=== PATIENT | male | born 1960 | race Caucasian/White ===

== ENCOUNTER 2019-06-07 11:15 | Outpatient (CLI) | payer MEDICARE ==
[2019-06-07 13:40] LABS: Hemoglobin 14.3 g/dL (14.0-18.0); Mean Corpuscular HGB CONC 33.8 g/dL (32.0-36.0); Mean Corpuscular Hemoglobin 30.4 pg (27.0-31.0); Mean Corpuscular Volume 90.1 fL (78.0-98.0); Mean Platelet Volume 8.3 fL (7.4-10.4); Platelet Count 232 thou/uL (130-400); RBC Distribution Width 11.1 % (11.5-14.5); Red Blood Cell (RBC) Count 4.71 mill/uL (4.70-6.10); White Blood Cell (WBC) Count 7.6 thou/uL (4.8-10.8)
[2019-06-07 13:58] LABS: PTT 27.2 SEC (22.9-36.1); Prothrombin Time 12.9 SEC (12.0-14.7)
[2019-06-07 14:05] LABS: Anion Gap 15 mmol/L (10-20); BUN (Urea Nitrogen) 15 mg/dL (8.4-25.7); Calc. Creatinine Clearance 0 mL/min (70-130); Calcium 10.1 mg/dL (7.8-10.44); Carbon Dioxide 28 mmol/L (22-29); Chloride 102 mmol/L (98-107); Estimated GFR-MDRD Greater than 90; Glucose 95 mg/dL (70-105); Potassium 3.5 mmol/L (3.5-5.1); Sodium 141 mmol/L (136-145)
--- NOTE | 2019-06-12 00:01 | EKG ---
Test Reason : Blood Pressure : / mmHG Vent. Rate : 075 BPM Atrial Rate : 075 BPM P-R Int : 140 ms QRS Dur : 094 ms QT Int : 388 ms P-R-T Axes : 075 069 062 degrees QTc Int : 433 ms Normal sinus rhythm Normal ECG No previous ECGs available Confirmed by Erik GILLETTE ([id number]) on 06/12/2019 12:01:28 AM Referred By: GLORIA Confirmed By:Erik GILLETTE
== END 2019-06-07 11:16 | disposition home or self-care (01) ==
LOC: LABBT 11:15
PROVIDERS: ATTEND Urology
DX: Z01.818 Encounter for other preprocedural examination (principal); N40.1 Benign prostatic hyperplasia with lower urinary tract symptoms; R35.0 Frequency of micturition; R97.20 Elevated prostate specific antigen [PSA]; R33.8 Other retention of urine
CPT/HCPCS: 80048; 85027; 85610; 85730; 87077; 87086; 87186; 93005; 93010

== ENCOUNTER 2019-06-23 00:20 | Emergency (ER) | payer MEDICARE ==
[2019-06-23 02:05] LABS: ALT (SGPT) 15 U/L (8-55); AST (SGOT) 11 U/L (5-34); Albumin 4.6 g/dL (3.5-5.0); Alkaline Phosphatase 73 U/L (40-110); Anion Gap 15 mmol/L (10-20); BUN (Urea Nitrogen) 13 mg/dL (8.4-25.7); Bilirubin, Total 0.4 mg/dL (0.2-1.2); Calc. Creatinine Clearance 0 mL/min (70-130); Calcium 10.1 mg/dL (7.8-10.44); Carbon Dioxide 26 mmol/L (22-29); Chloride 100 mmol/L (98-107); Estimated GFR-MDRD Greater than 90; Globulin 3.4 g/dL (2.4-3.5); Glucose 130 mg/dL (70-105); Potassium 3.3 mmol/L (3.5-5.1); Sodium 138 mmol/L (136-145)
[2019-06-23 02:29] LABS: #Basophils 0.1 thou/uL (0.0-0.2); #Eosinphils 0.1 thou/uL (0.0-0.7); #Lymphocytes 1.4 thou/uL (1.20-3.40); #Neutrophils 9.4 thou/uL (1.40-6.50); %Basophils 0.4 % (0.0-1.0); %Eosinophils 0.6 % (0.0-10.0); %Lymphocytes 11.6 % (21.0-51.0); %Monocytes 8.4 % (0.0-10.0); %Neutrophils 79.1 % (42.0-75.0); Hemoglobin 14.7 g/dL (14.0-18.0); Mean Corpuscular HGB CONC 34.3 g/dL (32.0-36.0); Mean Corpuscular Hemoglobin 30.8 pg (27.0-31.0); Mean Corpuscular Volume 89.6 fL (78.0-98.0); Mean Platelet Volume 8.5 fL (7.4-10.4); Platelet Count 248 thou/uL (130-400); RBC Distribution Width 11.3 % (11.5-14.5); Red Blood Cell (RBC) Count 4.79 mill/uL (4.70-6.10); White Blood Cell (WBC) Count 11.8 thou/uL (4.8-10.8)
[2019-06-23 02:43] LABS: Bacteria/HPF 2+ HPF (None Seen); Bilirubin Negative (Negative); Blood, Urine 2+ (Negative); Clarity Extra Turbid (Clear); Glucose, Urine (Dipstick) Normal (Negative); Leukocyte 500 Leu/uL (Negative); Nitrite Negative (Negative); Protein, Urine (Dipstick) 300 mg/dL (Neg-Trace); RBC/HPF Greater than 50 HPF (0-3); Squamous Epithelial None Seen HPF (0-3); WBC/HPF Greater than 50 HPF (0-3)
[2019-06-23] MEDS ORDERED: cefTRIAXone\\ROCEPHIN 2 GM VIAL ONE (03:18)
--- NOTE | 2019-06-23 09:21 | CT ---
PRELIMINARY REPORT/[facility]/EMERGENCY AFTER HOURS PROCEDURE EXAM: CT Abdomen and Pelvis with Intravenous Contrast CLINICAL HISTORY: M59 presents to the ED for urinary complaint. Pt reports he hasn't been feeling goo d for the past 5 days, and has been experiencing myalgias, cough, abd pain, 100.7 temp fever, chills, and sweats. Pt states he has been experiencing urinary retention since yesterday. Pt also states he has had decrease in BM, and has had little BM yesterday after not having any for the past 4 days. Pt has hx of enlarged prostate and was suppose to have sx last week but had to have it rescheduled. Pt h as a neri catheter in place and states he had it changed a couple of weeks ago. TECHNIQUE: Axial computed tomography images of the abdomen and pelvis with intravenous contrast. Cor onal and sagittal reformatted images are provided. CONTRAST: With; ISOVUE 370,100mL intravenous. COMPARISON: None provided. FINDINGS: LUNG BASES: Coronary atherosclerosis. The heart is normal size. The lung bases are clear. LIVER: Unremarkable. GALLBLADDER AND BILE DUCTS: Unremarkable. No calcified stone. No ductal dilation. PANCREAS: Unremarkable. SPLEEN: Unremarkable. ADRENAL GLANDS: Unremarkable. KIDNEYS, URETERS, AND BLADDER: 3 mm stone at the lower pole of the left kidney. No hydronephrosis or additional stones. Enlarged prostate. Neri catheter within the urinary bladder. Diffuse bladder wal l thickening with fat stranding adjacent to the bladder. STOMACH AND BOWEL: No obstruction. No wall thickening. No CT evidence of colitis or acute diverticuli tis. APPENDIX: No CT evidence for appendicitis. PERITONEUM: No free fluid. No free air. No abscess. LYMPH NODES: Lymph nodes adjacent to the urinary bladder measure up to 1.2 cm. Right iliac chain nod e measures 9 mm. REPRODUCTIVE: Unremarkable as visualized. VASCULATURE: No aortic aneurysm. BONES: No acute fractures or worrisome osseous lesions. Multilevel degenerative changes of the spine, worse at L5-S1. ABDOMINAL WALL AND SOFT TISSUES: Unremarkable. IMPRESSION: 1. Enlarged prostate with Neri catheter in the urinary bladder. Diffuse bladder wall thickening an d stranding is concerning for possible infectious cystitis. Correlate with urinalysis for infection. 2. Left nephrolithiasis. 3. Enlarged pelvic lymph nodes. These are felt to be reactive from acute bladder and/or prostate pr ocess, however imaging follow-up is recommended to exclude the possibility of malignancy. ELECTRONICALLY SIGNED BY: Augustine Banks M.D. Jun 23, 2019 2:48:23 AM HEAD FILTER TANK TENDER HELPER FINAL REPORT CT ABDOMEN AND PELVIS WITH IV CONTRAST: I agree with the preliminary report given by Dr. Augustine Banks of [facility]. POS: [facility]
[2019-06-23] MEDS ORDERED: Iopamidol-370 76% 500 ML 1 ML ONE (11:54)
== END 2019-06-23 03:47 | disposition home or self-care (01) ==
LOC: ERS 00:20
DX: N39.0 Urinary tract infection, site not specified (principal); I10 Essential (primary) hypertension; Z79.899 Other long term (current) drug therapy
CPT/HCPCS: 36415; 51702; 74177; 80053; 81003; 81015; 83605; 85025; 87040; 87077; 87086; 87186; 96374; J0696; Q9967

== ENCOUNTER 2019-06-29 09:07 | Observation (INO) | payer MEDICARE ==
[2019-06-07 11:29] VITALS: BMI 22.4
[2019-06-29] MEDS ORDERED: Levofloxacin 500 mg/D5W 100 ml Premix Bag ONE (10:06)
[2019-06-29] MEDS ORDERED: Rocuronium Bromide 10 MG/ML (10ML VIAL) ONE (10:40)
[2019-06-29] MEDS ORDERED: Esmolol 100 MG/10 ML VIAL ONE (10:40)
[2019-06-29] MEDS ORDERED: Labetalol HCl 100 MG/20 ML VIAL ONE (10:40)
[2019-06-29] MEDS ORDERED: Lidocaine 1% PF 5 ML VIAL ONE (10:40)
[2019-06-29] MEDS ORDERED: Ondansetron PF 4 MG/2 ML Vial ONE (10:40)
[2019-06-29] MEDS ORDERED: PROPOFOL 200 MG/20 ML VIAL ONE (10:40)
[2019-06-29] MEDS ORDERED: Glycopyrrolate 0.2 MG/ML 5 ML SYRINGE ONE (10:40)
[2019-06-29] MEDS ORDERED: Fentanyl 100 MCG/2 ML VIAL ONE ×2 (11:01→12:53)
[2019-06-29] MEDS ORDERED: Ondansetron PF 4 MG/2 ML Vial IVP PRN (11:23)
[2019-06-29] MEDS ORDERED: Bisacodyl 10 MG SUPP PR PRN (11:23)
[2019-06-29] MEDS ORDERED: Acetaminophen 500 MG TAB PO PRN (11:23)
[2019-06-29] MEDS ORDERED: Mag-Al 1200 mg/1200 mg/30 ML UDCUP PO PRN (11:23)
[2019-06-29] MEDS ORDERED: Phenazopyridine HCl 97.5 MG TABLET PO PRN (11:23)
[2019-06-29] MEDS ORDERED: diphenhydrAMINE 25 MG CAP PO PRN (11:23)
[2019-06-29] MEDS ORDERED: hydrALAZINE 20 MG/ML VIAL SLOW IVP PRN (11:23)
[2019-06-29] MEDS ORDERED: traMADol HCl 50 MG TAB PO PRN (11:25)
[2019-06-29] MEDS ORDERED: Nitroglycerin 0.4 MG TAB (25 Tab Bottle) SL PRN (11:30)
[2019-06-29] MEDS ORDERED: B & O ONE (11:58)
[2019-06-29] MEDS ORDERED: Hyoscyamine Sulfate SL 0.125 mg Tablet ONE (13:14)
--- NOTE | 2019-06-29 14:05 | OP ---
DATE OF PROCEDURE: 06/29/2019 SERVICE: Urology. PREOPERATIVE DIAGNOSIS: BPH with urinary retention. POSTOPERATIVE DIAGNOSIS: BPH with urinary retention. PROCEDURE PERFORMED: Transurethral resection of prostate. INDICATIONS FOR PROCEDURE: Mr. Scott is a 59-year-old white male with BPH and urinary retention. He failed multiple void trials. He did have an elevated PSA and underwent prostate biopsy, which was negative. We elected to proceed forward with TURP. Risks and benefits of the surgery were discussed and he has agreed to proceed forward. Of note, the patient did start his preoperative antibiotics due to indwelling catheter and colonization of his bladder. DESCRIPTION OF PROCEDURE: After identification of armband and verification of consent, the patient was brought back to the operating room, where he underwent general anesthesia with endotracheal intubation. He was then placed in dorsal lithotomy position and prepped and draped in usual sterile fashion. After appropriate time-out, a lubricated 26-Niuean resectoscope sheath with visual obturator was passed through the urethra into the prostate. The prostate was extremely large and hypertrophic that had previously been described on outpatient cystoscopy. The scope was then advanced into the bladder. The visual obturator was switched out for the bipolar prostate resectoscope loop. Resection was started at the bladder neck and carried back to the level of the verumontanum, taking care not to pass the verumontanum. Resection was carried out circumferentially until almost all the adenomatous prostate was removed. The resection was not taken to the capsule, but close to it. The bladder neck was relaxed at 5 o'clock and 7 o'clock after identifying the ureters and ensuring that they were free from injury. Median lobe was resected down until it was completely gone and flushed with the bladder. Upon completion, the prostate was wide open. The bladder neck was completely wide open, and all majority of the adenomatous prostate was removed. Both ureters were in orthotopic location unharmed. All prostate chips were evacuated using the [employer] evacuator and through the resectoscope sheath. Upon completion, all the chips were removed. Meticulous hemostasis was achieved using the cautery function on the bipolar and once completely dry, the ureters were rechecked and they were indeed unharmed and effluxing clear. The resectoscope was removed, and a 22-Niuean three-way Walters catheter was placed into the patient's bladder. A 30 mL of sterile water was placed into the balloon and CBI was initiated. A B and O suppositories placed in his rectum. The patient was then taken out of positioning, awakened, and taken to PACU for recovery in stable condition. COMPLICATIONS: None. ESTIMATED BLOOD LOSS: Minimal. RETAINED TUBES AND DRAINS: A 22-Niuean 3-way Walters catheter on CBI. SPECIMENS: Prostate chips for routine analysis. DISPOSITION: The patient will stay in the hospital overnight with a catheter. We will run CBI and attempt a void trial tomorrow. The patient can be then discharged pending the results of his void trial with or without a catheter and his followup will be handled on outpatient basis thereafter. Job ID: [id number]
[2019-06-29] MEDS ORDERED: Ondansetron HCl/PF 4 MG/2 ML Vial IVP PRN (15:11)
[2019-06-29] MEDS ORDERED: Promethazine HCl 25 MG/ML VIAL IM PRN (15:11)
[2019-06-29] MEDS ORDERED: Promethazine HCl 25 MG/ML VIAL SLOW IVP PRN (15:11)
[2019-06-29] MEDS: Hyoscyamine Sulfate SL 0.125 mg Tablet SL PRN (18:20)
[2019-06-29] MEDS: Oxybutynin 5 MG TAB PO PRN (18:20)
[2019-06-29] MEDS: Docusate 100 MG CAP PO SCH (20:29)
[2019-06-29] MEDS: Morphine 2 MG/ML SYRINGE SLOW IVP PRN ×2 (20:29→23:50)
[2019-06-30] MEDS: Morphine 2 MG/ML SYRINGE SLOW IVP PRN (04:20)
[2019-06-30] MEDS: Hyoscyamine Sulfate SL 0.125 mg Tablet SL PRN (05:11)
[2019-06-30] MEDS: Oxybutynin 5 MG TAB PO PRN (05:11)
[2019-06-30 05:25] LABS: #Eosinphils 0.1 thou/uL (0.0-0.7); #Lymphocytes 2.1 thou/uL (1.20-3.40); #Monocytes 1.1 thou/uL (0.11-0.59); #Neutrophils 7.4 thou/uL (1.40-6.50); %Basophils 0.3 % (0.0-1.0); %Eosinophils 1.1 % (0.0-10.0); %Monocytes 9.8 % (0.0-10.0); %Neutrophils 68.9 % (42.0-75.0); Hemoglobin 12.5 g/dL (14.0-18.0); Mean Corpuscular HGB CONC 33.9 g/dL (32.0-36.0); Mean Corpuscular Hemoglobin 30.6 pg (27.0-31.0); Mean Corpuscular Volume 90.3 fL (78.0-98.0); Mean Platelet Volume 7.5 fL (7.4-10.4); Platelet Count 290 thou/uL (130-400); RBC Distribution Width 11.4 % (11.5-14.5); White Blood Cell (WBC) Count 10.7 thou/uL (4.8-10.8)
[2019-06-30 05:50] LABS: Anion Gap 11 mmol/L (10-20); BUN (Urea Nitrogen) 8 mg/dL (8.4-25.7); Calc. Creatinine Clearance 89 mL/min (70-130); Carbon Dioxide 29 mmol/L (22-29); Chloride 104 mmol/L (98-107); Estimated GFR-MDRD Greater than 90; Glucose 98 mg/dL (70-105); Potassium 3.7 mmol/L (3.5-5.1); Sodium 140 mmol/L (136-145)
[2019-06-30] MEDS ORDERED: Lisinopril/Hydrochlorothiazide 20 mg/12.5 mg Tablet PO SCH (09:00)
[2019-06-30] MEDS ORDERED: Atorvastatin Calcium 10 MG TAB PO SCH (09:00)
[2019-06-30] MEDS: Docusate 100 MG CAP PO SCH (09:40)
[2019-06-30 12:04] VITALS: TEMP 98.3
[2019-06-30 15:40] VITALS: BP 91/60
--- NOTE | 2019-06-30 16:09 | PRG ---
DATE OF SERVICE: 06/30/2019 SUBJECTIVE: The patient states he is feeling fine. He did have bladder spasms overnight, but has no significant complaints otherwise this morning. No chest pain or shortness of breath. His CBI was turned off. OBJECTIVE: VITAL SIGNS: Temperature 97.6, pulse 105, respirations 14, blood pressure 115/80, saturation 97% on room air. GENERAL: No apparent distress. Communicative and alert, does appear little bit uncomfortable. CARDIOVASCULAR: Sinus tachycardia. Normal S1, S2. CHEST: No increased work of breathing. ABDOMEN: Soft, nontender, nondistended. : Walters catheter in place, draining light pink urine. CBI is off. EXTREMITIES: No edema. LABORATORY EVALUATION: Full set of labs are in the [employer] system, which I have reviewed. Of note, the patient's white count is 10.7, hemoglobin of 12.5. Creatinine is 0.86. ASSESSMENT AND PLAN: A 59-year-old white male with urinary retention secondary to benign prostatic hypertrophy, status post transurethral resection of the prostate, postop day one. We will plan a void trial, assuming the patient is able to void and his urine is not excessively bloody, he can probably be discharged home with followup on an outpatient basis. I did go over all of his discharge instructions with him. Job ID: [id number]
--- NOTE | 2019-06-30 21:21 | DIS ---
DATE OF ADMISSION: 06/29/2019 DATE OF DISCHARGE: 06/30/2019 ADMITTING DIAGNOSIS: BPH. DISCHARGE DIAGNOSIS: BPH. PROCEDURE PERFORMED: While inpatient is transurethral resection of prostate. BRIEF HISTORY: Mr. Scott is a 59-year-old white male with BPH and urinary retention. He is coming in for a TURP. The full H and P can be found in the scanned portion of the [employer] system. HOSPITAL COURSE: After surgery (please see operative note for details) the patient was kept in the hospital overnight for CBI. The patient's blood pressure and heart rate were slightly elevated correlating with times when his bladder spasms would occur. When his pain would subside down, his heart rate and blood pressure would also come down. He was treated with antispasmodics and pain medication. On postop day #1, his CBI was stopped. His urine was clear. His catheter was removed. The patient was able to void spontaneously. His urine was not excessively bloody. I went over his discharge instructions and he was discharged home in stable condition. DISPOSITION: Discharged to home. DISCHARGE CONDITION: Good. DISCHARGE MEDICATIONS: Include resuming all of his home medications except his Flomax, which can be stopped. He is to notify me for heavy bleeding, fevers, inability to urinate, or any other concerning signs or symptoms that he may have. Instructions include no heavy lifting or strenuous activities, drinking plenty of fluid, avoiding blood thinners and avoiding constipation. I will see him back in approximately 1 to 2 weeks for a postop check. Job ID: [id number]
== END 2019-06-30 16:10 | disposition home or self-care (01) ==
LOC: SDC 09:07 → SJJU 11:23
PROVIDERS: ADMIT Urology; ATTEND Urology
PROC: 0VT08ZZ Resection of Prostate, Via Natural or Artificial Opening Endoscopic (ICD-10-PCS; principal; 2019-06-29)
DX: N40.1 Benign prostatic hyperplasia with lower urinary tract symptoms (principal); R33.8 Other retention of urine; R35.0 Frequency of micturition; R35.1 Nocturia; R39.12 Poor urinary stream; N41.0 Acute prostatitis; N41.1 Chronic prostatitis; I10 Essential (primary) hypertension; Z87.891 Personal history of nicotine dependence; Z79.899 Other long term (current) drug therapy; Z88.5 Allergy status to narcotic agent
CPT/HCPCS: 52601; 80048; 85025; 88305; 96365; 96375; 96376 ×2; G0378 ×2; 36415; J1956; J2001; J2270; J2405; J2704; J3010

== ENCOUNTER 2023-06-15 11:29 | Day surgery (SDC) | payer MEDICARE ==
[2023-05-25 11:16] VITALS: BMI 23.0
[~2023-06-15 11:29] MED LIST: Iopamidol 370 76% 100 ML VIAL ONE
[2023-06-15] MEDS ORDERED: fentaNYL 50 mcg/mL 1 mL Vial ONE (11:39)
[2023-06-15] MEDS ORDERED: Nitroglycerin 50 MG/250 ML BOT 0 ML ONE (11:40)
[2023-06-15] MEDS ORDERED: Heparin 10,000 UNITS/ 10 ML VIAL ONE (11:40)
[2023-06-15] MEDS ORDERED: Verapamil 5 MG/2 ML VIAL ONE (11:40)
[2023-06-15] MEDS ORDERED: Midazolam HCl 2 mg/2 ml Vial ONE (11:40)
[2023-06-15] MEDS ORDERED: Lidocaine 1% (PF) 30 ML VIAL ONE (11:41)
[2023-06-15] MEDS ORDERED: Adenosine 6 mg (2 mL) VIAL ONE (12:35)
[2023-06-15 12:56] LABS: #Eosinphils 0.1 thou/uL (0.0-0.7); #Monocytes 0.6 thou/uL (0.11-0.59); #Neutrophils 4.5 thou/uL (1.40-6.50); %Basophils 0.3 % (0.0-1.0); %Eosinophils 1.3 % (0.0-10.0); %Lymphocytes 23.5 % (21.0-51.0); %Monocytes 8.2 % (0.0-10.0); %Neutrophils 66.6 % (42.0-75.0); Hematocrit 35.2 % (42.0-52.0); Mean Corpuscular HGB CONC 34.1 g/dL (32.0-36.0); Mean Corpuscular Hemoglobin 30.2 pg (27.0-31.0); Mean Corpuscular Volume 88.7 fl (78.0-98.0); Mean Platelet Volume 10.8 fL (7.4-10.4); Platelet Count 206 10x3/uL (130-400); RBC Distribution Width 12.8 % (11.5-14.5); Red Blood Cell (RBC) Count 3.97 mill/uL (4.70-6.10); White Blood Cell (WBC) Count 6.7 10x3/uL (4.8-10.8)
[2023-06-15 13:17] LABS: Anion Gap 12 mmol/L (10-20); BUN (Urea Nitrogen) 21 mg/dL (8.4-25.7); Calc. Creatinine Clearance 89 mL/min (70-130); Calcium 9.1 mg/dL (7.8-10.44); Carbon Dioxide 22 mmol/L (23-31); Chloride 107 mmol/L (98-107); Estimated GFR 97; Glucose 108 mg/dL (80-115); Potassium 3.7 mmol/L (3.5-5.1); Sodium 137 mmol/L (136-145)
[2023-06-15] MEDS ORDERED: Protamine Sulfate 50 MG/5 ML VIAL ONE (13:18)
== END 2023-06-15 18:00 | disposition home or self-care (01) ==
LOC: CCL 11:29
PROVIDERS: ATTEND Internal Medicine Cardiovascular Disease
PROC: B200YZZ Plain Radiography of Single Coronary Artery using Other Contrast (ICD-10-PCS; principal; 2023-06-15)
DX: I25.10 Atherosclerotic heart disease of native coronary artery without angina pectoris (principal); I10 Essential (primary) hypertension; E78.5 Hyperlipidemia, unspecified; Z87.891 Personal history of nicotine dependence; Z98.890 Other specified postprocedural states; Z90.89 Acquired absence of other organs; Z98.52 Vasectomy status; Z79.899 Other long term (current) drug therapy; Z88.5 Allergy status to narcotic agent
CPT/HCPCS: 80048; 85025; 85347 ×2; 93454; C1769 ×3; C1887; C1894; J3010; 99152; 99153; J0153; J1644; J2001; J2250; J2720

== ENCOUNTER 2023-07-06 15:30 | Inpatient (IN) | payer MEDICARE ==
[2023-07-06 15:29] VITALS: BMI 22.8
[2023-07-06 15:29] LABS: Hematocrit 36.8 % (38.8-50.0); Hemoglobin 12.8 g/dL (13.5-17.5); Mean Corpuscular HGB CONC 34.8 g/dL (32.0-36.0); Mean Corpuscular Hemoglobin 30.6 pg (27.0-33.0); Mean Platelet Volume 10.9 fl (7.4-10.4); Platelet Count 254 10x3/uL (150-450); RBC Distribution Width 12.8 % (11.5-14.5); Red Blood Cell (RBC) Count 4.18 10x6/uL (4.32-5.72); White Blood Cell (WBC) Count 7.8 10x3/uL (3.5-10.5)
[2023-07-06 16:05] LABS: Anion Gap 15 mmol/L (10-20); BUN (Urea Nitrogen) 14 mg/dL (8.4-25.7); Calc. Creatinine Clearance 0 mL/min (70-130); Calcium 9.5 mg/dL (7.8-10.44); Carbon Dioxide 26 mmol/L (23-31); Chloride 102 mmol/L (98-107); Estimated GFR 74; Glucose 82 mg/dL (80-115); Potassium 3.8 mmol/L (3.5-5.1); Sodium 139 mmol/L (136-145)
[2023-07-07] MEDS ORDERED: Heparin 10,000 UNITS/1 ML VIAL 30,000 UNITS in Sodium Chloride 0.9% 1,000 ML FS SCH (06:30)
[2023-07-07] MEDS ORDERED: Fentanyl 250 MCG/5 ML VIAL ONE ×2 (06:33→09:28)
[2023-07-07] MEDS ORDERED: Midazolam HCl 2 mg/2 ml Vial ONE ×2 (06:34)
[2023-07-07] MEDS ORDERED: Albumin 5% 500 ML ONE (06:35)
[2023-07-07] MEDS ORDERED: Sodium Chloride 0.9% 100 ML ONE (07:19)
[2023-07-07] MEDS ORDERED: CEFAZOLIN 2 GM VIAL ONE (07:19)
[2023-07-07] MEDS ORDERED: Isoflurane INH ANEST 100 ML BOTTLE ONE (08:03)
[2023-07-07] MEDS ORDERED: PROPOFOL 20 ML ONE (08:04)
[2023-07-07] MEDS ORDERED: Dexmedetomidine 200 MCG/2 ML VIAL ONE (08:46)
[2023-07-07] MEDS ORDERED: Dexamethasone 20 MG/5 ML VIAL ONE (08:46)
[2023-07-07] MEDS ORDERED: Glycopyrrolate 0.2 MG/ML 5 ML SYRINGE ONE (08:50)
[2023-07-07] MEDS ORDERED: Esmolol 100 MG/10 ML VIAL ONE (09:01)
[2023-07-07] MEDS ORDERED: Calcium Chloride 1 GM/10 ML Abboject SYRINGE ONE (10:28)
[2023-07-07] MEDS ORDERED: Hetastarch 6% 500 ML 500 ML IVPB PRN (11:16)
[2023-07-07] MEDS ORDERED: hydrALAZINE 20 MG/ML VIAL SLOW IVP PRN (11:16)
[2023-07-07] MEDS ORDERED: Mag-Al 1200 mg/1200 mg/30 ML UDCUP PO PRN (11:16)
[2023-07-07] MEDS ORDERED: Albumin 5% 12.5 GM (250 mL) BOT IVPB PRN (11:16)
[2023-07-07] MEDS ORDERED: niCARdipine 25 MG in Sodium Chloride 0.9% 250 ML 250 ML IVPB PRN (11:16)
[2023-07-07] MEDS ORDERED: Ondansetron PF 4 MG/2 ML Vial IVP PRN (11:16)
[2023-07-07] MEDS ORDERED: DOPamine 400 MG/D5W 250 ML 250 ML IVPB PRN (11:16)
[2023-07-07] MEDS ORDERED: Bisacodyl 10 MG SUPP PR PRN (11:16)
[2023-07-07] MEDS ORDERED: Promethazine HCl 25 MG/ML VIAL IM PRN (11:16)
[2023-07-07] MEDS ORDERED: Guaifenesin DM 100-10/5 ML UDCUP PO PRN (11:16)
[2023-07-07] MEDS ORDERED: Bisacodyl 5 MG TAB PO PRN (11:16)
[2023-07-07 11:27] LABS: Actual Bicarbonate (HCO3a) 23.1 mEq/L (22-28); Base Excess (BEa) -2.2 mEq/L (-2.0 to +3.0); CO2 Tension 41.3 mmHg (35.0-45.0); Calcium, Ionized (arterial) 1.24 mmol/L (1.12-1.30); Carboxyhemoglobin (COHb) 0.6 gm% (0.0-3.0); Hematocrit-ABG 36 % (42.0-52.0); Hemoglobin (Hb) 12.3 g/dL (14.0-18.0); O2 Tension (PaO2), arterial 175.7 mmHg (> 80.0); Potassium - ABG Lab 3.61 mmol/L (3.70-5.30); pH, Arterial 7.365 (7.35-7.45)
[2023-07-07 11:29] LABS: Puncture Site Arterial Line
[2023-07-07 11:30] LABS: ALV-art Gradient 200.475 mmHg (0-20)
[2023-07-07] MEDS: Morphine 2 MG/ML VIAL SLOW IVP PRN (11:35)
[2023-07-07 11:36] LABS: #Eosinphils 0.1 thou/uL (0.0-0.7); %Basophils 0.1 % (0.0-1.0); %Eosinophils 0.7 % (0.0-10.0); %Lymphocytes 17.6 % (21.0-51.0); %Monocytes 0.5 % (0.0-10.0); %Neutrophils 79.8 % (42.0-75.0); Hemoglobin 11.9 g/dL (14.0-18.0); Mean Corpuscular Hemoglobin 30.7 pg (27.0-31.0); Mean Corpuscular Volume 90.2 fl (78.0-98.0); Mean Platelet Volume 10.5 fL (7.4-10.4); Platelet Count 153 10x3/uL (130-400); RBC Distribution Width 13.2 % (11.5-14.5); Red Blood Cell (RBC) Count 3.88 mill/uL (4.70-6.10); White Blood Cell (WBC) Count 7.6 10x3/uL (4.8-10.8)
[2023-07-07] MEDS: Nitroglycerin 50 MG/250 ML BOT 250 ML IVPB PRN (11:40)
[2023-07-07] MEDS ORDERED: HUMULIN R 100 UNITS in Sodium Chloride 0.9% 100 ML IVPB SCH (11:45)
[2023-07-07] MEDS ORDERED: Dextrose 5% in Water 1,000 ML IV PRN (11:45)
[2023-07-07] MEDS ORDERED: Dextrose 50% Abboject 50 ML SYRINGE SLOW IVP PRN (11:45)
[2023-07-07] MEDS ORDERED: Glucagon 1 MG/ML KIT SC PRN (11:45)
[2023-07-07 11:51] LABS: INR-International Normal Ratio 1.2; PTT 28.2 sec (22.9-36.1); Prothrombin Time 15.6 sec (12.0-14.7)
[2023-07-07] MEDS: Ketorolac Tromethamine 30 MG (1 mL) VIAL IVP SCH (11:54)
[2023-07-07 12:00] LABS: Anion Gap 9 mmol/L (10-20); BUN (Urea Nitrogen) 16 mg/dL (8.4-25.7); Calc. Creatinine Clearance 89 mL/min (70-130); Calcium 8.6 mg/dL (7.8-10.44); Carbon Dioxide 24 mmol/L (23-31); Chloride 113 mmol/L (98-107); Estimated GFR 98; Glucose 156 mg/dL (80-115); Potassium 3.6 mmol/L (3.5-5.1); Sodium 142 mmol/L (136-145)
[2023-07-07] MEDS: Post-Op Insulin Drip Protocol IVPB ONE (12:02)
[2023-07-07] MEDS: Lactated Ringer's 1,000 ML IV SCH (12:02)
[2023-07-07] MEDS: Metoprolol Tartrate 5 MG (5 mL) VIAL ONE (12:08)
[2023-07-07] MEDS: Insulin Regular 300 UNITS/3 ML VIAL SC PRN (12:08)
[2023-07-07] MEDS: Potassium Chloride 20 MEQ (100 mL) BAG IVPB PRN (12:22)
[2023-07-07] MEDS: Albumin 5% 12.5 GM (250 mL) BOT IVPB PRN (12:30)
[2023-07-07] MEDS: NOREPINEPHRINE 8 MG/250 ML-D5W 250 ML IVPB PRN (13:05)
[2023-07-07 14:32] LABS: Actual Bicarbonate (HCO3a) 25.9 mEq/L (22-28); Base Excess (BEa) 1.4 mEq/L (-2.0 to +3.0); CO2 Tension 40.4 mmHg (35.0-45.0); Calcium, Ionized (arterial) 1.16 mmol/L (1.12-1.30); Carboxyhemoglobin (COHb) 0.6 gm% (0.0-3.0); Hematocrit-ABG 34 % (42.0-52.0); Hemoglobin (Hb) 11.6 g/dL (14.0-18.0); O2 Tension (PaO2), arterial 104.2 mmHg (> 80.0); Potassium - ABG Lab 3.96 mmol/L (3.70-5.30); pH, Arterial 7.425 (7.35-7.45)
[2023-07-07 14:42] LABS: Puncture Site Arterial Line
[2023-07-07] MEDS: Metoprolol Tartrate 5 MG (5 mL) VIAL IVP SCH (14:46)
[2023-07-07] MEDS: CEFAZOLIN 2 GM in Sodium Chloride 0.9% 100 ML IVPB SCH (14:50)
[2023-07-07] MEDS: fentaNYL 50 mcg/mL 1 mL Vial SLOW IVP PRN (16:07)
[2023-07-07] MEDS: HYDROcodone/Acetaminophen 5/325 mg Tablet PO PRN (17:48)
[2023-07-07 18:13] LABS: Hematocrit 32.2 % (42.0-52.0); Hemoglobin 10.8 g/dL (14.0-18.0)
[2023-07-07 18:26] LABS: Potassium 3.3 mmol/L (3.5-5.1)
[2023-07-07] MEDS: Atorvastatin Calcium 20 MG TAB PO SCH (20:43)
[2023-07-07] MEDS: Acetaminophen 325 MG TAB PO PRN (20:43)
[2023-07-07] MEDS: Famotidine/PF 20 mg/2ml Vial SLOW IVP SCH (20:45)
[2023-07-08 00:47] LABS: Potassium 3.9 mmol/L (3.5-5.1)
[2023-07-08 04:31] LABS: #Basophils 0.1 thou/uL (0.0-0.2); #Eosinphils 0.1 thou/uL (0.0-0.7); #Neutrophils 7.7 thou/uL (1.40-6.50); %Basophils 0.6 % (0.0-1.0); %Eosinophils 0.6 % (0.0-10.0); %Monocytes 10.5 % (0.0-10.0); Hematocrit 30.8 % (42.0-52.0); Hemoglobin 10.2 g/dL (14.0-18.0); Mean Corpuscular HGB CONC 33.1 g/dL (32.0-36.0); Mean Corpuscular Hemoglobin 30.4 pg (27.0-31.0); Mean Corpuscular Volume 91.9 fl (78.0-98.0); Mean Platelet Volume 11.2 fL (7.4-10.4); Platelet Count 164 10x3/uL (130-400); RBC Distribution Width 13.5 % (11.5-14.5); Red Blood Cell (RBC) Count 3.35 mill/uL (4.70-6.10); White Blood Cell (WBC) Count 9.4 10x3/uL (4.8-10.8)
[2023-07-08 04:47] LABS: Anion Gap 12 mmol/L (10-20); BUN (Urea Nitrogen) 15 mg/dL (8.4-25.7); Calc. Creatinine Clearance 92 mL/min (70-130); Carbon Dioxide 23 mmol/L (23-31); Chloride 110 mmol/L (98-107); Potassium 3.8 mmol/L (3.5-5.1); Sodium 141 mmol/L (136-145)
[2023-07-08 04:48] LABS: Calcium 7.9 mg/dL (7.8-10.44); Estimated GFR 99; Glucose 119 mg/dL (80-115)
[2023-07-08] MEDS: traMADol HCl 50 MG TAB PO PRN (09:03)
[2023-07-08] MEDS: Aspirin 325 MG TAB PO SCH (09:03)
[2023-07-08] MEDS: Polyethylene Glycol 3350 17 GM Packet PO SCH (09:04)
[2023-07-08] MEDS ORDERED: Insulin Glargine 30 UNITS/0.3 ML VIAL SC PRN (11:32)
[2023-07-08] MEDS: Nebivolol HCl 2.5 MG TAB PO SCH (17:29)
[2023-07-08] MEDS: Atorvastatin Calcium 40 MG TAB PO SCH (20:25)
[2023-07-08] MEDS: fentaNYL 50 mcg/mL 1 mL Vial SLOW IVP PRN (21:38)
[2023-07-09 04:23] LABS: #Eosinphils 0.1 thou/uL (0.0-0.7); #Monocytes 1.2 thou/uL (0.11-0.59); #Neutrophils 6.5 thou/uL (1.40-6.50); %Basophils 0.1 % (0.0-1.0); %Eosinophils 0.7 % (0.0-10.0); %Lymphocytes 8.5 % (21.0-51.0); %Monocytes 14.1 % (0.0-10.0); Hematocrit 27.4 % (42.0-52.0); Mean Corpuscular HGB CONC 32.8 g/dL (32.0-36.0); Mean Corpuscular Hemoglobin 30.5 pg (27.0-31.0); Mean Corpuscular Volume 92.9 fl (78.0-98.0); Mean Platelet Volume 10.8 fL (7.4-10.4); Platelet Count 121 10x3/uL (130-400); RBC Distribution Width 13.3 % (11.5-14.5); Red Blood Cell (RBC) Count 2.95 mill/uL (4.70-6.10); White Blood Cell (WBC) Count 8.6 10x3/uL (4.8-10.8)
[2023-07-09 04:59] LABS: Anion Gap 10 mmol/L (10-20); BUN (Urea Nitrogen) 12 mg/dL (8.4-25.7); Calc. Creatinine Clearance 101 mL/min (70-130); Calcium 8.1 mg/dL (7.8-10.44); Carbon Dioxide 25 mmol/L (23-31); Chloride 105 mmol/L (98-107); Estimated GFR 102; Glucose 142 mg/dL (80-115); Sodium 136 mmol/L (136-145)
[2023-07-09] MEDS ORDERED: Artificial Tear Sol 15 ML BOT EA EYE PRN (07:32)
[2023-07-09] MEDS ORDERED: Mineral Oil ENEMA PR PRN (07:32)
[2023-07-09] MEDS ORDERED: Nitroglycerin 0.4 MG TAB (25 Tab Bottle) SL PRN (07:32)
[2023-07-09] MEDS: Clopidogrel Bisulfate 75 MG TAB PO SCH (08:18)
[2023-07-09] MEDS: Aspirin 81 mg Enteric Coated Tablet PO SCH (08:18)
[2023-07-09] MEDS: Famotidine 20 MG TAB PO SCH (08:19)
[2023-07-09] MEDS: Nebivolol HCl 2.5 MG TAB PO SCH (08:19)
[2023-07-09] MEDS: Amiodarone 150 MG in Dextrose 5% in Water 100 ML IVPB SCH (17:53)
[2023-07-09] MEDS: Amiodarone 450 MG in Dextrose 5% in Water 250 ML IVPB SCH (17:54)
[2023-07-09 19:14] LABS: Troponin I 0.722 ng/mL (< 0.028)
[2023-07-10 04:31] LABS: Cardiac Risk 2.4 (Less than 4.5)
[2023-07-10] MEDS: Amiodarone 200 MG TAB PO SCH (21:04)
[2023-07-11 06:31] LABS: Anion Gap 12 mmol/L (10-20); BUN (Urea Nitrogen) 10 mg/dL (8.4-25.7); Calc. Creatinine Clearance 99 mL/min (70-130); Calcium 8.4 mg/dL (7.8-10.44); Carbon Dioxide 24 mmol/L (23-31); Chloride 103 mmol/L (98-107); Estimated GFR 100; Glucose 111 mg/dL (80-115); Magnesium 1.8 mg/dL (1.6-2.6); Phosphorus 3.3 mg/dL (2.3-4.7); Sodium 135 mmol/L (136-145)
[2023-07-11 06:35] LABS: Critical Call Chem Troponin I NUR.DMM@0635; Troponin I 0.667 ng/mL (< 0.028)
[2023-07-11] MEDS: Magnesium 2 GM/50 ML(in water) 2 GM in Premix 1 BAG IVPB SCH (09:46)
[2023-07-11] MEDS: Senokot S 8.6-50 MG TAB PO SCH (10:40)
[2023-07-12 07:57] VITALS: BP 135/89; TEMP 97.5
== END 2023-07-12 12:01 | disposition home or self-care (01) | DRG 236 ==
LOC: SURG A 07-07 05:49 → CCU 07-07 11:10 → 2NO 07-09 19:08
PROVIDERS: ADMIT Thoracic Surgery (Cardiothoracic Vascular Surgery); ATTEND Thoracic Surgery (Cardiothoracic Vascular Surgery)
PROC: 02110Z9 Bypass Coronary Artery, Two Arteries from Left Internal Mammary, Open Approach (ICD-10-PCS; principal; 2023-07-07)
PROC: 06BQ0ZZ Excision of Left Saphenous Vein, Open Approach (ICD-10-PCS; 2023-07-07)
PROC: 5A1221Z Performance of Cardiac Output, Continuous (ICD-10-PCS; 2023-07-07)
PROC: 02L70CK Occlusion of Left Atrial Appendage with Extraluminal Device, Open Approach (ICD-10-PCS; 2023-07-07)
PROC: 4A133R1 Monitoring of Arterial Saturation, Peripheral, Percutaneous Approach (ICD-10-PCS; 2023-07-07)
PROC: 30233J1 Transfusion of Nonautologous Serum Albumin into Peripheral Vein, Percutaneous Approach (ICD-10-PCS; 2023-07-07)
DX: I25.10 Atherosclerotic heart disease of native coronary artery without angina pectoris (principal); I10 Essential (primary) hypertension; E78.5 Hyperlipidemia, unspecified; E11.9 Type 2 diabetes mellitus without complications; I48.91 Unspecified atrial fibrillation; Z96.642 Presence of left artificial hip joint; Z90.49 Acquired absence of other specified parts of digestive tract; Z98.890 Other specified postprocedural states; Z98.52 Vasectomy status; Z79.899 Other long term (current) drug therapy; Z79.82 Long term (current) use of aspirin; Z88.5 Allergy status to narcotic agent; Z87.891 Personal history of nicotine dependence
CPT/HCPCS: 36415; 36416; 71045; 80048; 80061; 82805; 82947; 83735; 84100; 84484; 85025; 85027; 85610; 85730; 86850; 86900; 86901; 93005; 93010; 93798; 94002; A4311; C1751; J0282; J1100; J1815; J1885; J2250; J2272; J2704; J3010; J3475; J3480; J3490; J7070; J7120; P9045; S0028